=== PATIENT | female | born 1940 | race Caucasian/White ===

== ENCOUNTER → 2017-07-18 | Outpatient (CLI) | payer OTHER | LOC: CAT 12:52 | DX: M81.0 Age-related osteoporosis without current pathological fracture (principal); R31.9 Hematuria, unspecified; Z90.5 Acquired absence of kidney ==

== ENCOUNTER → 2017-12-22 | Outpatient (CLI) | payer OTHER | LOC: RAD 01:27 | DX: Z12.31 Encounter for screening mammogram for malignant neoplasm of breast (principal); M81.0 Age-related osteoporosis without current pathological fracture ==

== ENCOUNTER → 2019-01-17 | Outpatient (CLI) | payer OTHER | LOC: RAD 01:56 | DX: Z12.31 Encounter for screening mammogram for malignant neoplasm of breast (principal) ==

== ENCOUNTER → 2021-04-17 | Outpatient (CLI) | payer OTHER | LOC: NUC 08:23 | PROVIDERS: ATTEND Preventive Medicine Public Health & General Preventive Medicine | DX: Z11.1 Encounter for screening for respiratory tuberculosis (principal); Z12.31 Encounter for screening mammogram for malignant neoplasm of breast; M81.0 Age-related osteoporosis without current pathological fracture; Z78.0 Asymptomatic menopausal state; N64.89 Other specified disorders of breast ==